=== PATIENT | male | born 1995 ===

== ENCOUNTER 2017-01-08 20:49 | Emergency (ER) | payer MEDICAID, OTHER ==
[2017-01-08 21:14] VITALS: BP 126/83
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
--- NOTE | 2017-01-10 11:13 | CR ---
Right hand: Four views of the right hand were obtained. Comparison: No previous study. Soft tissue swelling is identified. Joint spaces are preserved. No fracture or other bony abnormality is seen. Impression: 1. Soft tissue swelling. 2. No bony abnormality is identified on right hand study. Diagnostic code #2
== END 2017-01-08 22:30 | disposition home or self-care (01) ==
LOC: JD.ED 20:49
DX: S69.91XA Unspecified injury of right wrist, hand and finger(s), initial encounter (principal); F17.210 Nicotine dependence, cigarettes, uncomplicated; Z79.899 Other long term (current) drug therapy; Z98.890 Other specified postprocedural states; W22.8XXA Striking against or struck by other objects, initial encounter
CPT/HCPCS: 29125; 73130-26-RT; 73130-RT; 99282-25; 99283-25